=== PATIENT | female | born 1945 | race Caucasian/White ===

== ENCOUNTER → 2016-12-07 | Outpatient (CLI) | payer MEDICARE, MEDICAID | END | disposition home or self-care (01) | LOC: CFH 12:17 | PROVIDERS: ATTEND Family Medicine | DX: Z12.31 Encounter for screening mammogram for malignant neoplasm of breast (principal) | CPT/HCPCS: G0202 ==

== ENCOUNTER → 2017-01-20 | Outpatient (CLI) | payer MEDICARE, MEDICAID | END | disposition home or self-care (01) | LOC: CFH 14:27 | PROVIDERS: ATTEND Family Medicine | DX: I51.7 Cardiomegaly (principal); I10 Essential (primary) hypertension; F17.200 Nicotine dependence, unspecified, uncomplicated | CPT/HCPCS: 93306 ==

== ENCOUNTER → 2017-01-26 | Outpatient (CLI) | payer MEDICARE, MEDICAID | END | disposition home or self-care (01) | LOC: CFH 09:31 | PROVIDERS: ATTEND Family Medicine | DX: Z13.820 Encounter for screening for osteoporosis (principal); M85.88 Other specified disorders of bone density and structure, other site; N95.1 Menopausal and female climacteric states; J98.11 Atelectasis; F17.200 Nicotine dependence, unspecified, uncomplicated | CPT/HCPCS: 71020; 77080 ==

== ENCOUNTER 2017-08-01 16:16 | Inpatient (IN) | payer MEDICARE, MEDICAID ==
[~2017-08-01] VITALS: Ht 162.6 cm; Wt 84.0 kg
[2017-08-01] MEDS ORDERED: SODIUM CHLORIDE FLUSH 10ML SYR IVF ONE (16:30)
[2017-08-01] MEDS ORDERED: ALBUTEROL/IPRATROPIUM 2.5MG/0.5MG, 3 ML NPPB ONE (16:30)
[2017-08-01] MEDS ORDERED: PLEASE ENTER ALLERGIES MC SCH (16:30)
[2017-08-01] MEDS ORDERED: SODIUM CHLORIDE 0.9% 1,000ML IVBOLUS ONE (16:30)
[2017-08-01 16:52] LABS: RAPID INFLUENZA A Negative (Negative); RAPID INFLUENZA B Negative (Negative)
[2017-08-01 16:59] LABS: BASOPHILS # (AUTO) 0.02 x10^3/uL (0-0.1); BASOPHILS % (AUTO) 0 % (0-1); EOSINOPHILS % (AUTO) 0 % (1-7); LYMPHOCYTES # (AUTO) 2.46 x10^3/uL (1-3.4); LYMPHOCYTES % (AUTO) 18 % (22-44); MD NO; MEAN CORPUSCULAR HEMOGLOBIN 31.8 pg (27.0-34.8); MEAN CORPUSCULAR HGB CONC 33.8 g/dL (32.4-35.8); MEAN CORPUSCULAR VOLUME 94.1 fL (80-100); MEAN PLATELET VOLUME 9.8 fL (7.4-10.4); MONOCYTES # (AUTO) 1.14 x10^3/uL (0.2-0.8); MONOCYTES % (AUTO) 9 % (2-9); NEUTROPHILS # (AUTO) 9.75 x10^3/uL (1.8-6.8); NEUTROPHILS % (AUTO) 73 % (42-75); PLATELET COUNT 202 x10^3/uL (130-400); RED BLOOD COUNT 4.98 x10^6/uL (3.82-5.3); RED CELL DISTRIBUTION WIDTH 13.3 % (9.6-15.2)
[2017-08-01] MEDS ORDERED: AZITHROMYCIN 500 MG in SODIUM CHLORIDE 0.9% 250 ML IV ONE (17:00)
[2017-08-01 17:08] LABS: ALBUMIN 3.2 g/dL (3.4-5.0); ANION GAP 10 mmol/L (5-15); CALCIUM 9.2 mg/dL (8.5-10.1); CHLORIDE 96 mmol/L (98-107)
[2017-08-01 17:13] LABS: ALANINE AMINOTRANSFERASE 37 U/L (12-78); ALKALINE PHOSPHATASE 82 U/L (45-117); BILIRUBIN,TOTAL 1.1 mg/dL (0.2-1.0); CREATININE 1.18 mg/dL (0.55-1.02); TOTAL PROTEIN 7.4 g/dL (6.4-8.2); TROPONIN I < 0.015 ng/mL (0.000-0.045)
[2017-08-01 19:48] VITALS: BP 113/69
[2017-08-01] MEDS ORDERED: DOCUSATE 100 MG CAPSULE PO PRN ×2 (21:00→22:00)
[2017-08-01] MEDS ORDERED: ENALAPRILAT 1.25 MG/ML, 2ML IVPush PRN (21:00)
[2017-08-01] MEDS ORDERED: ACETAMINOPHEN 325 MG TABLET PO PRN ×2 (21:00→22:00)
[2017-08-01] MEDS ORDERED: ONDANSETRON ODT 4 MG PO PRN ×2 (21:00→22:00)
[2017-08-01] MEDS ORDERED: ALBUTEROL/IPRATROPIUM 2.5MG/0.5MG, 3 ML IPPB PRN (21:00)
[2017-08-01] MEDS ORDERED: ENOXAPARIN 40 MG/0.4 ML SQ SCH (21:00)
[2017-08-01] MEDS ORDERED: INSULIN ASPART 100 UNITS/ML, PEN SQ-INSULIN SCH (21:00)
[2017-08-01] MEDS ORDERED: BISACODYL 10 MG SUPP PR PRN (22:00)
[2017-08-01] MEDS ORDERED: ONDANSETRON 2MG/ML, 2ML IVPush PRN (22:00)
[2017-08-01] MEDS: INSULIN ASPART 100 UNITS/ML, PEN SQ-INSULIN SCH (22:09)
[2017-08-01 22:11] LABS: T4 (THYROXINE) 14.7 mcg/dL (4.8-13.9)
[2017-08-01] MEDS ORDERED: INSULIN DETEMIR 100 UNITS/ML, PEN SQ-INSULIN SCH (22:30)
[2017-08-01 22:51] LABS: HEMOGLOBIN A1C 6.7 % (4.2-6.3)
[2017-08-01] MEDS: SODIUM CHLORIDE 0.9% 1,000 ML IV SCH (23:23)
[2017-08-01] MEDS: methylPREDNISolone SOD SUCC 40 MG/ML IVPush SCH (23:23)
[2017-08-01] MEDS: HEPARIN 5,000 UNITS/ML, 1ML SQ SCH (23:23)
[2017-08-01 23:52] LABS: MICROSCOPIC INDICATED
[2017-08-02 00:11] LABS: CULTURE INDICATED? NO
[2017-08-02 01:36] VITALS: BP 113/68
[2017-08-02 02:47] VITALS: BP 113/69
[2017-08-02] MEDS: methylPREDNISolone SOD SUCC 40 MG/ML IVPush SCH ×3 (05:10→18:28)
[2017-08-02] MEDS ORDERED: ASPIRIN 325 MG TABLET EC PO SCH (06:00)
[2017-08-02 06:06] LABS: ALBUMIN 2.8 g/dL (3.4-5.0); ANION GAP 13 mmol/L (5-15); CALCIUM 8.9 mg/dL (8.5-10.1); CHLORIDE 100 mmol/L (98-107)
[2017-08-02 06:15] LABS: ALANINE AMINOTRANSFERASE 37 U/L (12-78); ALKALINE PHOSPHATASE 80 U/L (45-117); BILIRUBIN,TOTAL 0.7 mg/dL (0.2-1.0); CHOL/HDL RATIO 4.9; CHOLESTEROL, TOTAL 142 mg/dL (140-239); CREATININE 0.92 mg/dL (0.55-1.02); HDL CHOL % 20 % (28-40); HDL CHOLESTEROL (DIRECT) 29 mg/dL (40-60); LDL CHOLESTEROL,CALCULATED 93 mg/dL (54-169); LDL/HDL RATIO 3.2 (0.5-3.0); THYROID STIMULATING HORMONE 0.101 mIU/L (0.358-3.740); TOTAL PROTEIN 6.7 g/dL (6.4-8.2); TRIGLYCERIDES 98 mg/dL (50-200); VLDL CHOLESTEROL 20 mg/dL (0-25)
[2017-08-02] MEDS: HEPARIN 5,000 UNITS/ML, 1ML SQ SCH ×3 (06:20→22:02)
[2017-08-02 06:27] LABS: BASOPHILS # (AUTO) 0.02 x10^3/uL (0-0.1); BASOPHILS % (AUTO) 0 % (0-1); EOSINOPHILS % (AUTO) 0 % (1-7); LYMPHOCYTES % (AUTO) 11 % (22-44); MD NO; MEAN CORPUSCULAR HEMOGLOBIN 31.7 pg (27.0-34.8); MEAN CORPUSCULAR HGB CONC 33.5 g/dL (32.4-35.8); MEAN CORPUSCULAR VOLUME 94.4 fL (80-100); MONOCYTES # (AUTO) 0.24 x10^3/uL (0.2-0.8); MONOCYTES % (AUTO) 2 % (2-9); NEUTROPHILS # (AUTO) 8.53 x10^3/uL (1.8-6.8); NEUTROPHILS % (AUTO) 86 % (42-75); PLATELET COUNT 194 x10^3/uL (130-400); RED BLOOD COUNT 4.52 x10^6/uL (3.82-5.3)
[2017-08-02 07:20] VITALS: BP 123/61
[2017-08-02] MEDS ORDERED: PANTOPROZOLE 40MG TABLET PO SCH (07:30)
[2017-08-02] MEDS: INSULIN ASPART 100 UNITS/ML, PEN SQ-INSULIN SCH ×4 (08:16→22:01)
[2017-08-02] MEDS: SODIUM CHLORIDE 0.9% 1,000 ML IV SCH ×2 (08:16→19:16)
[2017-08-02] MEDS: SENNA/DOCUSATE TABLET PO SCH (09:00)
[2017-08-02 12:40] VITALS: BP 119/73
[2017-08-02] MEDS ORDERED: AMLO-335 PO (16:42)
[2017-08-02] MEDS ORDERED: INSULIN ASPART 100 UNITS/ML, PEN SQ-INSULIN STA (18:11)
[2017-08-02] MEDS: AZITHROMYCIN 500 MG in SODIUM CHLORIDE 0.9% 250 ML IV SCH (19:16)
[2017-08-02 20:10] VITALS: BP 127/72
[2017-08-02] MEDS: BUDESONIDE 0.5 MG/2 ML INHA INH SCH (21:00)
[2017-08-02] MEDS ORDERED: INSULIN DETEMIR 100 UNITS/ML, PEN SQ-INSULIN SCH ×2 (21:00)
[2017-08-03] MEDS: methylPREDNISolone SOD SUCC 40 MG/ML IVPush SCH ×5 (00:06→22:52)
[2017-08-03 01:35] VITALS: BP 140/76
[2017-08-03] MEDS: SODIUM CHLORIDE 0.9% 1,000 ML IV SCH (04:04)
[2017-08-03] MEDS: HEPARIN 5,000 UNITS/ML, 1ML SQ SCH ×3 (06:31→22:53)
[2017-08-03 07:24] VITALS: BP 136/77
[2017-08-03] MEDS: ATORVASTATIN 10 MG TABLET PO SCH (08:40)
[2017-08-03] MEDS: SENNA/DOCUSATE TABLET PO SCH (08:40)
[2017-08-03] MEDS: AMLODIPINE 5 MG TABLET PO SCH (08:40)
[2017-08-03] MEDS: INSULIN ASPART 100 UNITS/ML, PEN SQ-INSULIN SCH ×4 (08:41→19:24)
[2017-08-03] MEDS: BUDESONIDE 0.5 MG/2 ML INHA INH SCH ×2 (11:10→19:44)
[2017-08-03 12:55] VITALS: BP 136/69
[2017-08-03 18:53] VITALS: BP 161/73
[2017-08-03] MEDS: AZITHROMYCIN 500 MG in SODIUM CHLORIDE 0.9% 250 ML IV SCH (19:06)
[2017-08-03] MEDS: INSULIN DETEMIR 100 UNITS/ML, PEN SQ-INSULIN SCH (19:24)
[2017-08-04 02:10] VITALS: BP 150/73
[2017-08-04] MEDS: HEPARIN 5,000 UNITS/ML, 1ML SQ SCH ×3 (06:14→21:53)
[2017-08-04] MEDS: methylPREDNISolone SOD SUCC 40 MG/ML IVPush SCH ×3 (06:14→18:14)
[2017-08-04 07:29] VITALS: BP 155/90
[2017-08-04] MEDS: SENNA/DOCUSATE TABLET PO SCH (07:30)
[2017-08-04] MEDS: AMLODIPINE 5 MG TABLET PO SCH (07:44)
[2017-08-04] MEDS: ATORVASTATIN 10 MG TABLET PO SCH (07:44)
[2017-08-04] MEDS: INSULIN ASPART 100 UNITS/ML, PEN SQ-INSULIN SCH ×4 (07:45→19:46)
[2017-08-04] MEDS: BUDESONIDE 0.5 MG/2 ML INHA INH SCH ×2 (08:10→20:50)
[2017-08-04 13:43] VITALS: BP 155/74
[2017-08-04] MEDS: AZITHROMYCIN 500 MG in SODIUM CHLORIDE 0.9% 250 ML IV SCH (19:35)
[2017-08-04] MEDS: INSULIN DETEMIR 100 UNITS/ML, PEN SQ-INSULIN SCH (19:46)
[2017-08-04 20:06] VITALS: BP 166/91
[2017-08-05 01:04] VITALS: BP 162/69
[2017-08-05] MEDS: HEPARIN 5,000 UNITS/ML, 1ML SQ SCH (05:29)
[2017-08-05] MEDS ORDERED: methylPREDNISolone SOD SUCC 40 MG/ML IVPush SCH (06:00)
[2017-08-05 07:09] VITALS: BP 176/76
[2017-08-05] MEDS: AMLODIPINE 5 MG TABLET PO SCH (08:06)
[2017-08-05] MEDS: ATORVASTATIN 10 MG TABLET PO SCH (08:06)
[2017-08-05] MEDS: INSULIN ASPART 100 UNITS/ML, PEN SQ-INSULIN SCH (08:07)
[2017-08-05] MEDS: SENNA/DOCUSATE TABLET PO SCH (08:07)
[2017-08-05] MEDS: BUDESONIDE 0.5 MG/2 ML INHA INH SCH (09:25)
[2017-08-05] MEDS ORDERED: OMNIPAQUE 350 MG/ML, 100ML BOTTLE ONE (09:31)
[2017-08-05] MEDS ORDERED: ALBU8.5H8 INH (10:55)
[2017-08-05] MEDS ORDERED: METF500T PO (10:55)
[2017-08-05] MEDS ORDERED: PRED20TA PO (10:55)
[2017-08-05] MEDS ORDERED: FLUT1AER INH (10:55)
== END 2017-08-05 12:38 | disposition home or self-care (01) | DRG 871 ==
LOC: ED 17:27 → EDIP 17:28 → ED 17:49 → 3NE 19:19
PROVIDERS: ADMIT Family Medicine; ATTEND Family Medicine
DX: A41.9 Sepsis, unspecified organism (principal); N17.0 Acute kidney failure with tubular necrosis; J96.01 Acute respiratory failure with hypoxia; J44.1 Chronic obstructive pulmonary disease with (acute) exacerbation; J44.0 Chronic obstructive pulmonary disease with (acute) lower respiratory infection; J98.11 Atelectasis; J20.9 Acute bronchitis, unspecified; E04.2 Nontoxic multinodular goiter; E11.65 Type 2 diabetes mellitus with hyperglycemia; E78.5 Hyperlipidemia, unspecified; F10.20 Alcohol dependence, uncomplicated; E86.0 Dehydration; Y90.9 Presence of alcohol in blood, level not specified; F17.200 Nicotine dependence, unspecified, uncomplicated; I11.9 Hypertensive heart disease without heart failure; I25.10 Atherosclerotic heart disease of native coronary artery without angina pectoris; T38.0X5A Adverse effect of glucocorticoids and synthetic analogues, initial encounter; Z90.49 Acquired absence of other specified parts of digestive tract; Y92.89 Other specified places as the place of occurrence of the external cause; Z82.49 Family history of ischemic heart disease and other diseases of the circulatory system; Z79.899 Other long term (current) drug therapy; Z79.84 Long term (current) use of oral hypoglycemic drugs; Z88.0 Allergy status to penicillin; Z88.2 Allergy status to sulfonamides
CPT/HCPCS: 36415; 71045; 71275; 76536; 80053; 80061; 81001; 82306; 82947; 82962; 83036; 83735; 83880; 84100; 84436; 84443; 84481; 84484; 85025; 86677; 87040; 87400; 93005; 93306; 94640; 96365; J0456; J1644; J1815; J7626; Q9967; J2920; J7030; J7050

== ENCOUNTER 2019-03-13 14:40 | Outpatient (CLI) | payer MEDICARE, MEDICAID | END 2019-03-13 23:59 | disposition home or self-care (01) | LOC: CFH 14:40 | PROVIDERS: ATTEND Licensed Practical Nurse | DX: Z12.2 Encounter for screening for malignant neoplasm of respiratory organs (principal); J98.11 Atelectasis; I25.10 Atherosclerotic heart disease of native coronary artery without angina pectoris; Z87.891 Personal history of nicotine dependence | CPT/HCPCS: G0297 ==

== ENCOUNTER → 2019-05-31 | Outpatient (CLI) | payer MEDICARE, MEDICAID ==
[~2019-05-31] MED LIST: ALBU8.5H8 INH; AMLO-335 PO; AMLODIPINE PO; CYCL-259 PO; FLUT1AER INH; METF500T PO; OXYC1TAB7 PO; PRED20TA PO; SENN-193 PO
== END | disposition home or self-care (01) ==
LOC: RAD 10:55
PROVIDERS: ATTEND Orthopaedic Surgery
DX: S42.291A Other displaced fracture of upper end of right humerus, initial encounter for closed fracture (principal); E11.8 Type 2 diabetes mellitus with unspecified complications; I10 Essential (primary) hypertension; J44.9 Chronic obstructive pulmonary disease, unspecified; E78.5 Hyperlipidemia, unspecified; I50.30 Unspecified diastolic (congestive) heart failure; F19.90 Other psychoactive substance use, unspecified, uncomplicated; F17.200 Nicotine dependence, unspecified, uncomplicated; F10.10 Alcohol abuse, uncomplicated; Z88.0 Allergy status to penicillin; Z88.2 Allergy status to sulfonamides; Q42.8 Congenital absence, atresia and stenosis of other parts of large intestine; Z83.42 Family history of familial hypercholesterolemia; Z84.89 Family history of other specified conditions; M19.011 Primary osteoarthritis, right shoulder; M25.531 Pain in right wrist; M25.411 Effusion, right shoulder; X58.XXXA Exposure to other specified factors, initial encounter; Y93.89 Activity, other specified; Y92.89 Other specified places as the place of occurrence of the external cause; Y99.8 Other external cause status